=== PATIENT | male | born 1960 | race Caucasian/White ===

== ENCOUNTER 2018-12-21 13:41 | Inpatient (IN) | payer OTHER ==
[~2018-12-21] VITALS: Ht 188 cm; Wt 111.6 kg
[2018-12-21 13:42] VITALS: BP 131/111
[2018-12-21] MEDS ORDERED: LISINOPRIL20 MG PO (13:48)
[2018-12-21] MEDS ORDERED: CHLORTHALIDONE25 MG PO (13:49)
[2018-12-21] MEDS ORDERED: LANTUS100 UNIT/M SUBQ (13:50)
[2018-12-21] MEDS ORDERED: VITAMIN D1000 UNI1 PO (13:51)
[2018-12-21 14:04] LABS: ABSOLUTE BASOPHILS 0.1 thou/uL (0.0-0.2); ABSOLUTE EOSINOPHILS 0.3 thou/uL (0.0-0.7); ABSOLUTE LYMPHOCYTES 2.4 thou/uL (0.8-5.3); ABSOLUTE MONOCYTES 0.5 thou/uL (0.0-1.2); BASOPHILS 0.6 %; EOSINOPHILS 3.7 %; HEMATOCRIT 41.4 % (42.0-52.0); HEMOGLOBIN 14.2 gm/dL (14.0-18.0); LYMPHOCYTES 25.8 %; MCH 31.1 pg (26.0-34.0); MCHC 34.3 g/dL (28.0-37.0); MCV 90.6 fL (80.0-100.0); MONOCYTES 5.3 %; MPV 7.9 fl. (7.2-11.1); NUCLEATED RBCS 0 /100WBC; PLATELET COUNT* 241 thou/uL (150-400); POLYS 64.6 %; RBC 4.57 mil/uL (4.50-6.00); RDW-CV 13.3 % (10.5-14.5); WBC 9.3 thou/uL (4.0-11.0)
[2018-12-21 14:16] LABS: ANION GAP 11 mmol/L (7-16); APTT 24.7 Seconds (25.0-31.3); BUN 30 mg/dL (7-18); CALCIUM 8.5 mg/dL (8.5-10.1); CHLORIDE 102 mmol/L (98-107); CO2 24 mmol/L (21-32); CREATININE 1.4 mg/dL (0.6-1.3); GLUCOSE 240 mg/dL (70-99); POTASSIUM 3.7 mmol/L (3.5-5.1); PROTIME 10.4 Seconds (9.20-11.50); SODIUM 137 mmol/L (136-145)
[2018-12-21 14:27] LABS: ALBUMIN 3.9 g/dL (3.4-5.0); ALKALINE PHOSPHATASE 59 U/L (46-116); NT-PRO BRAIN NAT PEPTIDE 9 pg/mL (<300); SGOT 17 U/L (15-37); SGPT 47 U/L (30-65); TOTAL BILIRUBIN 0.4 mg/dL (<0.1-1.0); TOTAL PROTEIN 7.2 g/dL (6.4-8.2); TROPONIN-I LEVEL <0.06 ng/mL (<0.06)
[2018-12-21 16:00] VITALS: BP 124/87
[2018-12-21 16:20] LABS: CHOLESTEROL 117 mg/dL (<200); HDL CHOLESTEROL 19 mg/dL (>40); LDL CHOLESTEROL 50 mg/dL (<100); TC:HDL 6.2 Ratio (Not establshd); TRIGLYCERIDE 244 mg/dL (<150); VLDL 49 mg/dL (<40)
[2018-12-21 16:21] LABS: SERUM ASSESSMENT Slight Lipemia
[2018-12-21 16:47] VITALS: BP 150/70
--- NOTE | 2018-12-21 16:47 | EKG ---
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
--- NOTE | 2018-12-21 17:06 | NUR ---
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
[2018-12-21] MEDS ORDERED: LIPITOR80 MG PO (18:25)
[2018-12-21 18:28] VITALS: BP 136/79; BP 139/77; BP 142/76
[2018-12-21] MEDS ORDERED: GLUCOTROL5 MG PO (18:28)
[2018-12-21 20:28] VITALS: BP 108/59
[2018-12-22] VITALS: BP 111/59
[2018-12-22 02:06] LABS: GLYCOHEMOGLOBIN (HGB A1C) 6.8 % (4.8-5.6)
[2018-12-22 04:00] VITALS: BP 94/41
--- NOTE | 2018-12-22 07:01 | NUR ---
PT IS ABLE TO COMMUNICATE HIS NEEDS TO STAFF EFFECTIVELY. HE HAS DENIED THE NEED FOR PAIN MEDICATION UP TO THIS TIME. PT HAS REPORTED GREATLY DECREASED DIZZINESS AND DENIED ANY NAUSEA SO FAR THIS SHIFT. POSSIBLE DISCHARGE TODAY.
[2018-12-22 08:00] VITALS: BP 120/72
--- NOTE | 2018-12-22 09:30 | NUR ---
RECEIVED REPORT FROM YAMIL FOWLER. ASSUMED CARE OF PT AROUND 0715. PT A&O X4, VSS. 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 AM ASSESSMENT AND VITALS COMPLETED CHARTED. PT TO HAVE MRI LATER TODAY AND WILL BE SEEN BY NEURO. FAMILY AT BEDSIDE. IV INFUSING. PT HOPEFUL TO DC LATER TODAY. FALL PRECAUTIONS IN PLACE. CALL LIGHT IS WITHIN REACH. HOURLY ROUNDING PERFORMED. WCTM.
[2018-12-22 10:26] LABS: CALCIUM 8.4 mg/dL (8.5-10.1); CREATININE 1.4 mg/dL (0.6-1.3); POTASSIUM 4.1 mmol/L (3.5-5.1)
[2018-12-22 13:38] VITALS: BP 109/59
--- NOTE | 2018-12-22 14:40 | EEG ---
[address] [address] EEG STUDY REPORT Name: GEMMA SANCHEZ Room: [address] IN .R.#: [id number] Admission: 12/21/18 Attend Phys: Lucy Cárdenas MD Discharge: Date of : 58 Report #: [id number] THIS REPORT FOR: //name// CC: Lucy Cárdenas Physician staff YOUSIF NEWMAN DATE OF SERVICE: 12/22/2018 This patient is having dizziness. EEG was done by placing the electrode by standard 10-20 system of electrode placement. Both referential and sequential montages were used for recording. Background activity in this patient's EEG is about 8 Hz and 30 microvolt. It is a symmetrical activity. Photic stimulation is unremarkable. Throughout the record, no active epileptiform activity was noticed. IMPRESSION: This patient's electroencephalogram is intermixed with theta range slowing on both sides, which is a nonspecific finding. No active epileptiform activity was noticed. Thank you very much for this referral. <ELECTRONICALLY SIGNED> By: Henry Stevens MD 12/22/18 1440 1421 [id number] Stevens MD /nt
[2018-12-22 16:00] VITALS: BP 116/57
--- NOTE | 2018-12-22 19:55 | NUR ---
VSS. PT TO STAY OVERNIGHT WITH PLANS FOR DC IN THE AM. ALL NEEDS MET AT THIS TIME. ACCT EXEC IN PLACE TRACING SR WITH NO CHANGES. LOW FALL RISK PRECAUTIONS IN PLACE. CALL LIGHT IS WITHIN REACH. HOURLY ROUNDING.
[2018-12-22 20:35] VITALS: BP 122/66
[2018-12-23] VITALS: BP 117/59
[2018-12-23 04:00] VITALS: BP 104/58
[2018-12-23 04:27] LABS: CALCIUM 8.5 mg/dL (8.5-10.1); CREATININE 1.4 mg/dL (0.6-1.3); POTASSIUM 4.1 mmol/L (3.5-5.1)
--- NOTE | 2018-12-23 05:57 | NUR ---
PT IS ABLE TOP COMMUNICATE HIS NEEDS TO STAFF EFFECTIVELY. HE HAS DENIED THE NEED FOR PAIN MEDICATION UP TO THIS TIME. VERY LIKELY DISCHARGE TODAY.
[2018-12-23 08:00] VITALS: BP 115/52
[2018-12-23] MEDS ORDERED: ASPIR 8181 MG PO (11:12)
[2018-12-23 11:57] VITALS: BP 115/52
[2018-12-23 12:32] VITALS: BP 127/51
--- NOTE | 2018-12-25 21:30 | CON ---
[address] [address] CONSULTATION Name: GEMMA SANCHEZ Room: [address] IN ..#: [id number] Admission: 12/21/18 Attend Phys: Lucy Cárdenas MD Discharge: 12/23/18 Date of : 58 Report #: [id number] THIS REPORT FOR: //name// CC: Lucy Cárdenas Physician staff YOUSIF Mendez ANNUAL CAMPAIGN [facility] DATE OF SERVICE: 12/21/2018 CARDIOLOGY CONSULTATION INDICATION: Syncope. HISTORY OF PRESENT ILLNESS: The patient is a 58-year-old gentleman who had the onset of vertigo this morning. His symptoms became worse throughout the midday including dizziness, lightheadedness, diaphoresis, nausea and vomiting. The patient notes the symptoms mostly when getting up from a seated position and describes the room as spinning. His symptoms have improved somewhat since being admitted, but are still persistent. He has no cardiac history. Cardiac risk factors include hypertension and type 2 diabetes mellitus. He is without complaint of chest pain or palpitations. He has never had symptoms like this before. PAST MEDICAL HISTORY: 1. Type 2 diabetes mellitus. 2. Hypertension. PAST SURGICAL HISTORY: 1. Appendectomy. 2. Tonsillectomy. 3. Varicose veins removed from the scrotum. ALLERGIES: None. MEDICATIONS: Chlorthalidone 12.5 mg daily, vitamin D 5000 units daily, Lantus 100 units at bedtime, lisinopril 20 mg daily. FAMILY HISTORY: Noncontributory. SOCIAL HISTORY: The patient does not smoke. He does not drink alcohol. REVIEW OF SYSTEMS: A 14-point review of systems positive for diabetes, he wears glasses without acute visual changes, otherwise unremarkable. PHYSICAL EXAMINATION: [address] [address] CONSULTATION Name: GEMMA SANCHEZ Room: [address]#: [id number] Admission: 12/21/18 Attend Phys: Lucy Cárdenas MD Discharge: 12/23/18 Date of : 58 Report #: [id number] VITAL SIGNS: Blood pressure 150/70, pulse 76 and regular. GENERAL: This is a pleasant gentleman who appears healthy. He is in no distress. Mood and affect appropriate. HEENT: Extraocular muscles intact. Mucous membranes moist. NECK: Shows no jugular venous distention. There are no carotid bruits. CHEST: Reveals clear lung butcher without wheezes, rales or rhonchi. CARDIOVASCULAR: Reveals regular rhythm without gallop or murmur. ABDOMEN: Reveals normal bowel sounds. The abdomen is soft and nontender. EXTREMITIES: Shows no edema. Peripheral pulses 2+ and easily palpable. SKIN: Warm and dry. A 12-lead EKG shows sinus rhythm with no significant ST or T-wave abnormalities. LABORATORY DATA: Reviewed. Troponins are negative x 2. IMPRESSION AND RECOMMENDATIONS: 1. Profound dizziness with syncope or near syncope attributable to vertigo. This is noncardiac. No further cardiac evaluation necessary at this time. I would check orthostatic blood pressures, although I do not believe that he is orthostatic. Would continue telemetry monitoring, although I feel this is unlikely to show any type of arrhythmia. 2. Diabetes, per primary physician. 3. Hypertension, presently relatively stable. Continue home medications. From a cardiac standpoint, the patient appears stable. We will follow up as needed. <ELECTRONICALLY SIGNED> By: Emmanuel Bishop MD, [facility] 12/25/18 2130 1758 [id number] Heartemely Bishop MD, FAC /nt
== END 2018-12-23 12:55 | disposition home or self-care (01) | DRG 149 ==
LOC: M.ERS 13:41 → M.TBA-ER 15:22 → M.2W 16:11
PROVIDERS: Family Medicine; Psychiatry & Neurology Neurology; ADMIT Internal Medicine
DX: H81.90 Unspecified disorder of vestibular function, unspecified ear (principal); N17.9 Acute kidney failure, unspecified; I10 Essential (primary) hypertension; E11.9 Type 2 diabetes mellitus without complications; E78.00 Pure hypercholesterolemia, unspecified; E78.5 Hyperlipidemia, unspecified; Z90.49 Acquired absence of other specified parts of digestive tract; Z90.89 Acquired absence of other organs; Z79.899 Other long term (current) drug therapy; Z79.4 Long term (current) use of insulin